=== PATIENT | female | born 1945 ===

== ENCOUNTER 2018-08-02 19:35 | Inpatient (IN) | payer MEDICARE ==
[~2018-08-02] VITALS: Ht 167.6 cm; Wt 84.0 kg
[~2018-08-02 19:35] MED LIST: CALC0.25 PO; ERGO500017 PO
--- NOTE | 2018-08-02 19:48 | NUR ---
Pt presents to ed c/o mglf tonight s/t feeling weak after dialysis. -head trauma, -loc States hx of same after dialysis appt. States cpx3 weeks in center of chest. reproducable w/ associated sob. C/o generalized pain. States goes to dialysis m,w,f. All monitoring applied. Iv access established. Awaiting md orders.
[2018-08-02] MEDS ORDERED: ASPIRIN 81 MG TABLET CHEW ONE (19:59)
[2018-08-02] MEDS ORDERED: ONDANSETRON 2MG/ML, 2ML ONE (19:59)
[2018-08-02] MEDS ORDERED: MORPHINE SULFATE 4 MG/ML, 1ML ONE (20:00)
[2018-08-02] MEDS ORDERED: ONDANSETRON 2MG/ML, 2ML IVPush ONE (20:00)
[2018-08-02] MEDS ORDERED: MORPHINE SULFATE 4 MG/ML, 1ML IVPush PRN (20:00)
[2018-08-02] MEDS ORDERED: ASPIRIN 81 MG TABLET CHEW PO ONE (20:00)
[2018-08-02 20:25] LABS: BASOPHILS # (AUTO) 0.04 x10^3/uL (0-0.1); BASOPHILS % (AUTO) 0 % (0-1); EOSINOPHILS # (AUTO) 0.37 x10^3/uL (0-0.4); EOSINOPHILS % (AUTO) 4 % (1-7); LYMPHOCYTES # (AUTO) 1.47 x10^3/uL (1-3.4); LYMPHOCYTES % (AUTO) 15 % (22-44); MD NO; MEAN CORPUSCULAR HEMOGLOBIN 30.7 pg (27.0-34.8); MEAN CORPUSCULAR HGB CONC 32.5 g/dL (32.4-35.8); MEAN CORPUSCULAR VOLUME 94.3 fL (80-100); MEAN PLATELET VOLUME 7.6 fL (7.4-10.4); MONOCYTES # (AUTO) 0.68 x10^3/uL (0.2-0.8); MONOCYTES % (AUTO) 7 % (2-9); NEUTROPHILS # (AUTO) 7.43 x10^3/uL (1.8-6.8); NEUTROPHILS % (AUTO) 74 % (42-75); PLATELET COUNT 202 x10^3/uL (130-400); RED BLOOD COUNT 2.95 x10^6/uL (3.82-5.3); RED CELL DISTRIBUTION WIDTH 16.3 % (9.6-15.2)
[2018-08-02 20:31] LABS: INTERNATIONAL NORMALIZED RATIO 1.07 (0.93-1.1); PROTHROMBIN TIME 11.2 Seconds (9.6-11.5)
[2018-08-02 20:36] LABS: ALBUMIN 2.4 g/dL (3.4-5.0); ANION GAP 12 mmol/L (5-15); CALCIUM 8.6 mg/dL (8.5-10.1); CHLORIDE 97 mmol/L (98-107)
[2018-08-02 20:42] LABS: ALANINE AMINOTRANSFERASE 10 U/L (12-78); ALKALINE PHOSPHATASE 71 U/L (45-117); BILIRUBIN,TOTAL 0.5 mg/dL (0.2-1.0); CREATININE 4.67 mg/dL (0.55-1.02); TOTAL PROTEIN 6.8 g/dL (6.4-8.2); TROPONIN I 0.033 ng/mL (0.000-0.045)
--- NOTE | 2018-08-02 21:19 | NUR ---
Spo2 dropped to mid 80's. Placed on 2L nc. spo2 mid-high 90's.
--- NOTE | 2018-08-02 21:19 | NUR ---
Attempted to gain med rec from pt. States unable to remember medications. informed this rn he can bring the medications in.
--- NOTE | 2018-08-02 22:00 | NUR ---
Hospitalist at bedside.
[2018-08-02 22:37] VITALS: BP 102/57
[2018-08-02] MEDS ORDERED: morphine SULFATE 10 MG/ML, 1ML IVPush PRN (23:00)
[2018-08-02] MEDS ORDERED: OMEPRAZOLE 20 MG CAPSULE.DR PO SCH (23:00)
[2018-08-02] MEDS ORDERED: ACETAMINOPHEN 325 MG TABLET PO PRN (23:00)
[2018-08-02] MEDS ORDERED: ONDANSETRON 2MG/ML, 2ML IVPush PRN (23:00)
[2018-08-02] MEDS ORDERED: HEPARIN 5,000 UNITS/ML, 1ML SQ SCH (23:00)
[2018-08-03] MEDS ORDERED: ERGO500018 PO (00:04)
[2018-08-03] MEDS ORDERED: CALC0.25 PO (00:04)
[2018-08-03 00:07] LABS: TROPONIN I 0.066 ng/mL (0.000-0.045)
[2018-08-03 00:27] LABS: FREE T4 (FREE THYROXINE) 1.24 ng/dL (0.76-1.46)
[2018-08-03] MEDS ORDERED: SODIUM BICARB 8.4%, 50ML SYRINGE ONE (02:00)
[2018-08-03 02:53] VITALS: BP 91/53
[2018-08-03] MEDS ORDERED: DEXTROSE 50%, 50ML SYRINGE ONE (04:46)
[2018-08-03] MEDS ORDERED: EPINEPHRINE SYRINGE 0.1 MG/ML, 10ML ONE (04:46)
[2018-08-03] MEDS ORDERED: CODE BLUE RESPONSE XX ONE (04:46)
== END 2018-08-03 04:39 | disposition expired | DRG 306 ==
LOC: ED 20:32 → EDIP 21:42 → 5SO 22:27
PROVIDERS: ADMIT Family Medicine; ATTEND Family Medicine
PROC: 5A12012 Performance of Cardiac Output, Single, Manual (ICD-10-PCS; principal; 2018-08-03)
DX: I35.0 Nonrheumatic aortic (valve) stenosis (principal); J96.01 Acute respiratory failure with hypoxia; I50.31 Acute diastolic (congestive) heart failure; N18.6 End stage renal disease; I46.9 Cardiac arrest, cause unspecified; K76.89 Other specified diseases of liver; D64.9 Anemia, unspecified; W18.39XA Other fall on same level, initial encounter; F12.90 Cannabis use, unspecified, uncomplicated; R33.9 Retention of urine, unspecified; Z99.2 Dependence on renal dialysis; Z85.41 Personal history of malignant neoplasm of cervix uteri; Z87.891 Personal history of nicotine dependence; Y93.89 Activity, other specified; Y92.89 Other specified places as the place of occurrence of the external cause; Y99.8 Other external cause status; Z79.899 Other long term (current) drug therapy
CPT/HCPCS: 36415; 71045; 80053; 82962; 83880; 84439; 84443; 84484; 85025; 85610; 92950; 93005; 96374; 96375; G0378; J1644; J2405; J2270